=== PATIENT | female | born 1965 | race Caucasian/White ===

== ENCOUNTER 2017-03-28 20:17 | Emergency (ER) | payer SELFPAY ==
[~2017-03-28] VITALS: Ht 162.6 cm; Wt 78.7 kg
[~2017-03-28 20:17] MED LIST: CITA10SO PO; FLEX10TA PO; LORA-392 PO; MELO7.5 PO; METO25TA6 PO; OMEP20TA PO
[2017-03-28] MEDS ORDERED: TOPR25TA PO (20:44)
[2017-03-28] MEDS ORDERED: OMEP40CA2 PO (20:44)
[2017-03-28] MEDS ORDERED: CELE40TA PO (20:44)
[2017-03-28 20:45] VITALS: BP 119/69; PULSE 80; RESP 18; TEMP 98.1; O2SAT 96
--- NOTE | 2017-03-28 21:08 | PD ---
HPI Chief Complaint: Fall Time Seen by Provider: 20:56 Travel History International Travel<30 days: No Contact w/Intl Traveler<30days: No Traveled to known affect area: No History of Present Illness HPI 51yo F with no PMH presents to the ED with c/o left elbow pain s/p trip and fall at 3pm yesterday. Stated she trip and fell on bilateral outstretched hands. Pt had some abrasion on right knee and left ankle but is not complaining of pain there. Pt ambulating normally and did not hit her head. Not on blood thinner. Denies any fever, chest pain, sob, n/v, abdominal pain, focal weakness or numbness. PFSH Past Medical History Anxiety: Yes Depression: Yes Cancer: No Cardiovascular Problems: Yes (TACHYCARDIA) Chest Pain: No Diabetes: No Diminished Hearing: No Glaucoma: No Hepatitis: No Hiatal Hernia: No Hypertension: Yes Respiratory: Yes (ASTHMA WHEN SICK) Integumentary: No Immunizations Current: Yes Thyroid Disease: No Tetanus Vaccination: > 5 Years Influenza Vaccination: Yes ?: Not Past Surgical History Section: Yes Cholecystectomy: Yes Hysterectomy: Yes Other Surgery: Yes Social History Alcohol Use: No Tobacco Use: No Substance Use: No Allergies-Medications (Allergen,Severity, Reaction): Coded Allergies: No Known Allergies (Unverified , 03/28/17) Reported Meds & Prescriptions Reported Meds & Active Scripts Active Ibuprofen 600 Mg Tab 600 Mg PO Q8HR PRN Reported Omeprazole 40 Mg Cap 40 Mg PO DAILY Celexa (Citalopram Hydrobromide) 40 Mg Tab 40 Mg PO DAILY Toprol XL (Metoprolol Succinate) 25 Mg Tab 25 Mg PO DAILY Review of Systems Except as stated in HPI: all other systems reviewed are Neg Physical Exam Narrative GENERAL: 51yo F not in distress. SKIN: Focused skin assessment warm/dry. HEAD: Atraumatic. Normocephalic. CARDIOVASCULAR: Regular rate and rhythm. No murmur appreciated. RESPIRATORY: No accessory muscle use. Clear to auscultation. Breath sounds equal bilaterally. GASTROINTESTINAL: Abdomen soft, non-tender, nondistended. No rebound tenderness or guarding. MUSCULOSKELETAL: Left elbow: Able to fully flex but tender on extension. No ttp olecranon. +TTP proximal ulna. Mild edema in proximal radius. No ttp left wrist. No ttp bilateral scaphoid. FROM in all digits. Sensation intact. Abrasion on right knee. FROM right knee. Abrasion left ankle. FROM left ankle. NEUROLOGICAL: Awake and alert. No obvious cranial nerve deficits. Motor grossly within normal limits. Normal speech. PSYCHIATRIC: Appropriate mood and affect; insight and judgment normal. Data Data Last Documented VS Vital Signs Date Time Temp Pulse Resp B/P Pulse Ox O2 Delivery O2 Flow Rate FiO2 03/28/17 20:45 98.1 80 18 119/69 96 Orders Elbow, Limited (Ap&Lat) (03/28/17 ) Ketorolac Inj (Toradol Inj) (03/28/17 21:15) Splint Or Brace Apply/Monitor (03/28/17 21:43) Sling Cradle Arm (03/28/17 ) Fiberglass Sugartong Sp Ad Arm (03/28/17 ) MDM Medical Decision Making Medical Screen Exam Complete: Yes Emergency Medical Condition: Yes Differential Diagnosis Contusion vs. fracture Narrative Course 51yo F with left elbow pain s/p trip and fall yesterday. May have hyperextension left elbow injury. Will obtain xray left elbow and give toradol IM for pain. Pt reevaluated at bedside and has some improvement of pain. Xray left elbow showed radial head fracture without displacement. Pt placed in sugar tong splint and arm sling and instructed to follow up with orthopedic as outpatient. Return precautions given. Diagnosis Primary Impression: Radial head fracture, closed Qualified Code: S52.125A - Closed nondisplaced fracture of head of left radius , initial encounter Referrals: Manfred Menon Jr., MD call for appointment Radial head fracture Patient Instructions: General Instructions Departure Forms: Tests/Procedures Additional Instructions: Please follow up with orthopedic clinic at next available appointment. Return to the ED if symptoms worsen. Med/Other Pt SpecificInfo: Prescription(s) given Scripts Ibuprofen 600 Mg [id number] Mg PO Q8HR PRN (PAIN) #20 TAB Ref 0 Prov:Ameena Mortensen DO 03/28/17 Disposition: 01 DISCHARGE HOME Condition: Stable Ameena Mortensen DO Mar 28, 2017 21:07
[2017-03-28] MEDS ORDERED: KETOROLAC TROMETHAMINE 60 MG/2 ML (IM) VIAL IM ONE (21:15)
--- NOTE | 2017-03-28 21:29 | RADHPO ---
EXAM DATE/TIME: 03/28/2017 21:13 [facility] COMPARISON: No previous studies available for comparison. INDICATIONS : Left elbow pain, fall yesterday. MEDICAL HISTORY : None. SURGICAL HISTORY : None. ENCOUNTER: Initial ACUITY: 2 days PAIN SCORE: 8/10 LOCATION: Left elbow. FINDINGS: There is a fracture of radial head without any significant angulation or displacement. Small joint ef fusion is seen. CONCLUSION: Radial head fracture. Vazquez Cardenas MD on March 28, 2017 at 21:27 Board Certified Radiologist. This report was verified electronically.
[2017-03-28] MEDS ORDERED: IBUP-232 PO (21:47)
== END 2017-03-28 22:34 | disposition home or self-care (01) ==
LOC: PHEFT 20:17
DX: S52.125A Nondisplaced fracture of head of left radius, initial encounter for closed fracture (principal); S80.211A Abrasion, right knee, initial encounter; S90.512A Abrasion, left ankle, initial encounter; W01.0XXA Fall on same level from slipping, tripping and stumbling without subsequent striking against object, initial encounter; I10 Essential (primary) hypertension
CPT/HCPCS: 29125; 73070; 96372; 99283; J1885